=== PATIENT | male | born 1985 | race Two or more races ===

== ENCOUNTER 2018-05-10 12:22 | Emergency (ER) | payer MEDICAID ==
[~2018-05-10] VITALS: Ht 182.9 cm; Wt 86.2 kg
[2018-05-10] MEDS ORDERED: ETOMIDATE (2MG/ML) 20ML VIAL IV ONE (12:45)
[2018-05-10 12:51] VITALS: BP 162/92
== END 2018-05-10 14:44 | disposition home or self-care (01) ==
LOC: ER 12:22
DX: S43.014A Anterior dislocation of right humerus, initial encounter (principal); F17.210 Nicotine dependence, cigarettes, uncomplicated; F12.10 Cannabis abuse, uncomplicated; W19.XXXA Unspecified fall, initial encounter; Y93.89 Activity, other specified; Y99.8 Other external cause status; Y92.89 Other specified places as the place of occurrence of the external cause
CPT/HCPCS: 23650; 73020